=== PATIENT | female | born 1990 | race African-American/Black ===

== ENCOUNTER 2023-09-25 18:26 | Emergency (ER) | payer OTHER ==
[~2023-09-25] VITALS: Ht 165.1 cm; Wt 97.9 kg
[2023-09-25 18:47] VITALS: BP 105/74; PULSE 81; RESP 18; TEMP 98.1; O2SAT 99
[2023-09-25] MEDS ORDERED: IBUP-1455 PO (19:31)
[2023-09-25] MEDS ORDERED: AMOX875T4 PO (19:31)
== END 2023-09-25 19:41 | disposition home or self-care (01) ==
LOC: ER 18:26
DX: K04.7 Periapical abscess without sinus (principal)

== ENCOUNTER 2024-03-18 14:07 | Inpatient (IN) | payer OTHER ==
[~2024-03-18] VITALS: Ht 162.6 cm; Wt 89.0 kg
[~2024-03-18 14:07] MED LIST: AMOX875T4 PO; IBUP-1455 PO
--- NOTE | 2024-03-18 14:26 | ED.PDOC ---
HPI Comments HPI: Poor Historian. 33 y.o female presents to the ED for a chief complaint of chest pain that started on 03/09/24 and is associated with right arm tingling sensation x today. Patient reports chest pain is intermittent, has no alleviating or precipitating factors. Patient called her PCP today and was referred to the ED for further evaluation. Patient denies any chest pain at this moment. Denies fever, chills, nausea, vomiting, diarrhea, SOB, urinary symptoms or family history of CAD. Patient reports the use of marijuana. Vital signs: BP: 119/63 HR: 73 Temp: 97.7 F SPO2: 98% RA RR: 20 Patient denies any allergies Past medical history: Denies Past surgical history: Denies REVIEW OF SYSTEMS: CONSTITUTIONAL: Denies acute: fever, diaphoresis, chills, generalized weakness. HEAD: Denies acute: headache, photophobia Eyes: Denies acute: Double vision, vision loss, eye pain, eye discharge. EARS: Denies acute: tinnitus, hearing loss, ear discharge, ear pain, THROAT: Denies acute: sore throat, swelling, difficulty swallowing , pain with swallowing, change in voice. NECK: Denies acute: neck pain, neck swelling, stiff neck. HEART: Denies acute : palpitations, LUNGS: Denies acute: SOB, wheezing, cough, hemoptysis ABDOMEN: Denies acute: abdominal pain, Nausea, Vomiting, diarrhea, melena , hematemesis, hematochezia SKIN: Denies acute: rash, redness, lesions, itchiness. EXTREMITIES: Denies acute: calf pain, weakness, Denies acute: Low back pain. Neuro: Denies acute: focal neurological deficit, motor or sensory focal neurological deficit, tremors, seizure like activity, confusion, dizziness, change in mental status, loss of bowel or bladder function, cauda equina like symptoms. : Denies acute: dysuria, hematuria, flank pain, increase in urinary frequency. PSYCH: Denies acute: hallucination, suicidal ideation, homicidal ideation. FEMALE: Denies acute: abnormal vaginal bleeding, foul odor, unusual discharge. PHYSICAL EXAM: General: no acute distress, awake and alert. Head: normocephalic, atraumatic. Neck: supple, trachea is midline, no swelling. Throat: Normal phonation. Eyes:, no erythema, no purulent discharge, no proptosis, no icterus. Heart: regular rate, regular rhythm, no significant murmur appreciated. Lungs: no apparent respiratory distress, Able to speak in full sentences. No wheezing, no rhonchi, no crackles. No stridors Clear to auscultation bilaterally. Abdomen: non tender to palpation, non distended, soft, no guarding, no rebound, + bowel sounds. Neuro: Awake, Alert, oriented to name, self, situation, follows commands GCS=15. Speech is normal. Skin: no petechia, no purpura, no cyanosis, non-pale, not jaundice. Lower extremities: --no - Pitting edema no deformity, no focal swelling, no calf TTP. Makes eye contact. moves all four extremities. Face: no apparent facial droop. Ambulating in the ED independently. Chief Complaint: Chest Pain Time Seen by MD: 14:16 Reviewed Notes: Nurses Notes, Medications, Allergies Allergies: Coded Allergies: NO KNOWN ALLERGIES (Unverified , 09/25/23) Home Meds Active Scripts Ibuprofen Micronized (Ibuprofen) 800 Mg Tab, 800 MG PO TID for 20 Days, #60 TAB Prov:AGUS RIZZO 09/25/23 Amoxicillin & Pot Clavulanate (Amoxicillin/Potassium Cla) 875 Mg Tab, 1 TAB PO BID for 10 Days, #20 TAB Prov:AGUS RIZZO 09/25/23 Reported Medications Bupropion Hcl (Bupropion Hcl Xl) 300 Mg Tab, 1 TAB PO DAILY 03/18/24 Information Source: Patient Mode of Arrival: Ambulatory Past Medical History PAST MEDICAL HISTORY: Denies Surgical History: Denies all surgeries HEEL SEAT POUNDER History: No Pertinent HEEL SEAT POUNDER History Family History Family History: Reviewed,noncontributory to illness Social History Smoker: Non-Smoker Alcohol: Denies ETOH Use Drugs: Marijuana Lives In: Home Was a procedure done? Was a procedure done?: No CP Differential Dx Differential Diagnosis: N/A Differential Diagnosis: Angina, Chest Wall Pain, Costochondritis, Pericarditis, Other (Ddx include but not limitied to gastritis, musculoskeletal pain, radiculopathy, atypical chest pain, dissection, aneurysm, ACS, unstable angina, hiatal hernia, GERD, anxiety, costochondritis, PE, pneumothroax, neoplasm, cardiac ischemia, drug abuse, anemia.) X-Ray, Labs, Meds, VS Vital Signs Date Time Temp Pulse Resp B/P (MAP) Pulse Ox O2 Delivery O2 Flow Rate FiO2 03/18/24 17:13 66 03/18/24 15:56 117/81 03/18/24 15:20 117/81 (93) 03/18/24 15:14 69 03/18/24 14:56 141/66 03/18/24 14:51 64 18 141/66 (91) 98 03/18/24 14:13 67 03/18/24 14:10 97.7 73 20 119/63 (81) 98 Lab Test 03/18/24 17:35 03/18/24 15:17 03/18/24 15:15 03/18/24 14:17 Range/Units Troponin I High Sensitivity < 3 L < 3 L < 3 L </=34 ng/L Urine Color Yellow Yellow Urine Clarity Turbid H Clear Urine pH 6.0 5.0-9.0 Urine Specific [place] 1.037 H 1.001-1.035 Urine Protein 1+ H Negative Urine Ketones Trace Negative Urine Blood Negative Negative /uL Urine Nitrite Negative Negative Urine Bilirubin Negative Negative Urine Urobilinogen 3 H Negative mg/dL Urine Leukocyte Esterase Negative Negative /uL Urine RBC 1 0 - 4 /hpf Urine WBC 2 0 - 5 /hpf Urine Squamous Epithelial Cells Mod <5 /hpf Urine Bacteria None seen None Seen /hpf Urine Mucus Moderate None Seen Urine Glucose Normal Normal mg/dL White Blood Count 5.9 4.4-10.8 10^3/uL Red Blood Count 4.33 4.0-5.20 10^6/uL Hemoglobin 14.6 12.2-16.2 g/dL Hematocrit 41.8 36.0-46.0 % Mean Corpuscular Volume 96.6 80.0-100.0 fL Mean Corpuscular Hemoglobin 33.7 H 28.0-32.0 pg Mean Corpuscular Hemoglobin Concent 34.9 32.0-36.0 g/dL Red Cell Distribution Width 13.1 11.8-14.3 % Platelet Count 287 140-450 10^3/uL Mean Platelet Volume 7.5 6.9-10.8 fL Neutrophils (%) (Auto) 48.7 37.0-80.0 % Lymphocytes (%) (Auto) 40.9 10.0-50.0 % Monocytes (%) (Auto) 6.8 0.0-12.0 % Eosinophils (%) (Auto) 3.0 0.0-7.0 % Basophils (%) (Auto) 0.6 0.0-2.0 % Neutrophils # (Auto) 2.9 1.6-8.6 10 ^3/uL Lymphocytes # (Auto) 2.4 0.4-5.4 10 ^3/uL Monocytes # (Auto) 0.4 0-1.3 10 ^3/uL Eosinophils # (Auto) 0.2 0-0.8 10 ^3/uL Basophils # (Auto) 0 0-0.2 10 ^3/uL Nucleated Red Blood Cells 0.2 % D-Dimer, Quantitative 0.27 0.0-0.49 mg/L FEU Sodium Level 142 136-145 mmol/L Potassium Level 3.9 3.5-5.1 mmol/L Chloride Level 110 H 98-107 mmol/L Carbon Dioxide Level 27 20-31 mmol/L Anion Gap 5 5-15 Blood Urea Nitrogen 11 9-23 mg/dL Creatinine 0.96 0.550-1.02 mg/dL Glomerular Filtration Rate Calc 81 >90 mL/min BUN/Creatinine Ratio 11.5 10.0-20.0 Serum Glucose 84 74-106 mg/dL Lactic Acid Level 1.2 0.4-2.0 mmol/L Calcium Level 10.1 8.7-10.4 mg/dL Magnesium Level 2.0 1.6-2.6 mg/dL Total Bilirubin 0.6 0.2-1.0 mg/dL Aspartate Amino Transferase (AST) 11 L 13-40 U/L Alanine Aminotransferase (ALT) 16 7-40 U/L Alkaline Phosphatase 99 46-116 U/L Total Protein 7.6 5.7-8.2 g/dL Albumin 4.3 3.2-4.8 g/dL Current Medications Medications (Trade) Dose Ordered Sig/Tyrone Route Start Time Stop Time Status Last Admin Aspirin 325 mg ONCE ONCE PO 03/18/24 14:45 03/18/24 14:46 DC 03/18/24 14:55 Nitroglycerin (Ntrostat Sublingual) 0.4 mg ONCE ONCE SL 03/18/24 14:45 03/18/24 14:46 DC 03/18/24 14:56 [facility] [id number] [facility] [address] Ph: [phone] DIAGNOSTIC IMAGING Diagnostic Imaging Report : [id number] Signed PATIENT: TRICE DOS SANTOS ACCT: [id number] UNIT: [id number] : 1990 LOC: ER ROOM / BED: / AGE / SEX: 33 / F ADM STATUS: REG ER SERVICE [id number] ORDERING PHYSICIAN: SAQIB RAY DO PROCEDURE(s): CXRP - CHEST PORTABLE REASON: cp ORDER NUMBER(s): [id number], ACCESSION NUMBER(s): [id number] CHEST RADIOGRAPH Indication:cp Technique: Single frontal view of the chest was obtained COMPARISON: None FINDINGS: Lines and Tubes: None Lungs: Clear Pleura: No effusion. No pneumothorax. Cardiomediastinal contours: Unremarkable Bones: Unremarkable IMPRESSION: No acute disease. ATED BY: RUDDY VILLA MD DICTATED DATE/TIME: 03/18/241501 SIGNED BY: RUDDY VILLA MD SIGNED DATE/TIME: 03/18/241501 CC: Time of 1ST Reevaluation: 14:22 Reevaluation 1ST: Unchanged Time of 2ND Reevaluation: 19:47 Reevaluation 2ND: Improved Patient Education/Counseling: Diagnosis, Treatment Family Education/Counseling: No Family Present Comments Patient presented with the above HPI.---chest pain---workup was initiated. patient was found with the above mentioned diagnosis. Patient was given: Aspirin and nitroglycerin Patient ED course and VS have been stabilized. Patient has been reassessed in the ED and remained in a stable condition. Pertinent incidental findings were discussed with the patient and/or family. Patient/family voices understanding and is agreeable with plan. Patient has been observed in the ED adequate length of time to insure improvement/stability. EKG reveals multiple T-wave inversions in inferior leads patient was admitted to the medicine team for further evaluation and treatment of their presentation. All the reports of any imaging studies that were ordered by myself were reviewed by myself. Departure 1 Departure Time of Disposition: 14:38 Impression: Primary Impression: Abnormal EKG Additional Impressions: Chest pain T wave inversion in EKG Disposition: 09 ADMITTED INPATIENT Admit to: Tele Condition: Guarded Discharged With: Self Critical Care Note Critical Care Time?: No Heart Score Heart Score: Heart Score Response (Comments) Value History Moderate Suspicious [address]-Deviation 2 Age <45 0 Risk Factors No known risk factors 0 Troponin Normal limit 0 Total 3 I personally scribed for SAQIB RAY DO ([email or web address]) on 03/18/24 at 14:26. Electronically submitted by Gabrielle Martines ([facility]). I personally scribed for SAQIB RAY DO ([email or web address]) on 03/18/24 at 14:36. Electronically submitted by Gabrielle Martines ([facility]). I personally scribed for SAQIB RAY DO ([email or web address]) on 03/18/24 at 16:50. Electronically submitted by Gabrielle Martines ([facility] SAQIB RAY DO Mar 18, 2024 14:26
[2024-03-18] MEDS: ASPirin 325 MG TAB PO ONE (14:55)
[2024-03-18] MEDS: NITROGLYCERIN 0.4 MG SL TAB SL ONE (14:56)
--- NOTE | 2024-03-18 15:07 | DVH ---
CHEST RADIOGRAPH Indication:cp Technique: Single frontal view of the chest was obtained COMPARISON: None FINDINGS: Lines and Tubes: None Lungs: Clear Pleura: No effusion. No pneumothorax. Cardiomediastinal contours: Unremarkable Bones: Unremarkable IMPRESSION: No acute disease.
[2024-03-18 15:17] LABS: Urine Bacteria None Seen /hpf (None Seen)
[2024-03-18 15:36] LABS: Urine Blood Negative /uL (Negative); Urine Clarity Turbid (Clear); Urine Color Yellow (Yellow); Urine Mucus MODERATE (None Seen); Urine Protein, UAD 1+ (Negative); Urine Specific Gravity 1.037 (1.001-1.035); Urine Urobilinogen 3 mg/dL (Negative); Urine WBC 2 /hpf (0 - 5)
[2024-03-18 17:13] LABS: Basophils # (auto) 0 10 ^3/uL (0-0.2); Basophils % (auto) 0.6 % (0.0-2.0); Eosinophils # (auto) 0.2 10 ^3/uL (0-0.8); Hematocrit 41.8 % (36.0-46.0); Hemoglobin 14.6 g/dL (12.2-16.2); Lymphocytes # (auto) 2.4 10 ^3/uL (0.4-5.4); Lymphocytes % (auto) 40.9 % (10.0-50.0); Mean Corpuscular Hemoglobin 33.7 pg (28.0-32.0); Mean Corpuscular Hgb Conc. 34.9 g/dL (32.0-36.0); Mean Corpuscular Volume 96.6 fL (80.0-100.0); Monocytes # (auto) 0.4 10 ^3/uL (0-1.3); Monocytes % (auto) 6.8 % (0.0-12.0); Neutrophils # (auto) 2.9 10 ^3/uL (1.6-8.6); Neutrophils % (auto) 48.7 % (37.0-80.0); Nucleated Red Blood Cells % 0.2 %; Platelet Count (auto) 287 10^3/uL (140-450); Red Blood Cells 4.33 10^6/uL (4.0-5.20); Red Cell Distribution Width 13.1 % (11.8-14.3); White Blood Cell 5.9 10^3/uL (4.4-10.8)
[2024-03-18 17:19] LABS: Alanine Aminotransferase 16 U/L (7-40); Albumin 4.3 g/dL (3.2-4.8); Alkaline Phosphatase 99 U/L (46-116); Anion Gap 5 (5-15); Aspartate Aminotransferase 11 U/L (13-40); BUN/Creatinine Ratio 11.5 (10.0-20.0); Bilirubin, Total 0.6 mg/dL (0.2-1.0); Blood Urea Nitrogen 11 mg/dL (9-23); Calcium 10.1 mg/dL (8.7-10.4); Carbon Dioxide 27 mmol/L (20-31); Chloride 110 mmol/L (98-107); Glucose 84 mg/dL (74-106); Potassium 3.9 mmol/L (3.5-5.1); Sodium 142 mmol/L (136-145)
[2024-03-18 17:20] LABS: Total Protein 7.6 g/dL (5.7-8.2)
--- NOTE | 2024-03-18 18:02 | ECG ---
[facility] Test Date: 2024-03-18 Test Time: 17:13:58 Pat Name: TRICE DOS SANTOS Department: ED Room: Gender: F Cloud Solutions Architect: CATARINO : 1990 Requested By: SAQIB RAY Order Number: [id number] Reading MD: Measurements Intervals [place] Rate: 66 P: 61 RI: 134 QRS: 28 QRSD: 97 T: -30 QT: 365 QTc: 383 Interpretive Statements Sinus rhythm Nonspecific T abnormalities, diffuse leads Please click the below link to view image of tracing.
[2024-03-18] MEDS ORDERED: BUPR-581 PO (18:59)
--- NOTE | 2024-03-18 19:08 | DVHHP2 ---
Admitting Diagnosis: Chest pain History of Present Illness 33 y/o female patient presents with c/o chest pain and right arm tingling for the past 1 week. Patient states chest pain is intermittent. Patient called her PCP who referred her to the ER. While in the emergency department the patient was evaluated by the provider, As per provider: Labs, vital signs, and imagining monitored. Patient will be admitted for further evaluation and treatment. I discussed admission with the patient/family and is in agreement to treatment plan. Allergies: Coded Allergies: NO KNOWN ALLERGIES (Unverified , 09/25/23) Home Meds Active Scripts Ibuprofen Micronized (Ibuprofen) 800 Mg Tab, 800 MG PO TID for 20 Days, #60 TAB Prov:AGUS RIZZO 09/25/23 Amoxicillin & Pot Clavulanate (Amoxicillin/Potassium Cla) 875 Mg Tab, 1 TAB PO BID for 10 Days, #20 TAB Prov:AGUS RIZZO 09/25/23 Reported Medications Bupropion Hcl (Bupropion Hcl Xl) 300 Mg Tab, 1 TAB PO DAILY 03/18/24 Current Medications Current Medications Medications (Trade) Dose Ordered Sig/Tyrone Route PRN Reason Start Time Stop Time Status Last Admin Acetaminophen/ Hydrocodone Bitart ([place] 5/325MG Tab) 1 tab Q4HP PRN PO MODERATE PAIN (4-6 PAIN SCALE) 03/18/24 19:15 Temazepam (Restoril) 15 mg QHSP PRN PO FOR INSOMNIA 03/18/24 19:15 Ondansetron HCl (Zofran) 4 mg Q4HP PRN IV NAUSEA / VOMITING 03/18/24 19:15 Enoxaparin Sodium (Lovenox) 40 mg DAILY SC 03/19/24 10:00 03/19/24 08:46 Acetaminophen (Tylenol Tablet) 650 mg Q6HP PRN PO PAIN SCALE 1-3 OR TEMP>100.4 03/18/24 19:15 Morphine Sulfate 2 mg Q4HPRN PRN IV SEVERE PAIN (7-10 PAIN SCALE) 03/18/24 19:15 Pantoprazole Sodium (Protonix Tablet) 40 mg DAILY PO 03/19/24 10:00 03/19/24 08:46 Nitroglycerin (Ntrostat Sublingual) 0.4 mg Q5MINP PRN SL FOR CHEST PAIN 03/18/24 19:15 Morphine Sulfate 2 mg Q30M PRN IV FOR CHEST PAIN 03/18/24 19:15 Lisinopril (Zestril Tablet) 10 mg DAILY PO 03/19/24 10:00 03/19/24 08:46 Review of Systems Constitutional: denies chills, denies fever, denies malaise Eyes: denies eye pain, denies vision change ENT: denies ear pain, denies headache, denies nasal congestion, denies painful swallowing, denies voice change Cardiovascular: denies chest pain, denies edema, denies orthopnea, denies palpitations, denies paroxysmal nocturnal dyspnea Respiratory: denies cough, denies shortness of breath Gastrointestinal: denies constipation, denies diarrhea, denies nausea, denies vomiting Genitourinary: denies dysuria, denies frequent urination, denies urethral discharge Musculoskeletal: denies back pain, denies joint pain, denies muscle pain Skin: denies bruising, denies itching, denies rash Neurological: denies focal weakness, denies headache, denies sensory changes Psychiatric: denies anxiety, denies depression Endocrine: denies polydipsia, denies polyuria Hematologic/Lymphatic: denies easy bleeding, denies easy bruising, denies enlarged lymph nodes Allergic/Immunologic: denies allergy, denies hives Vital Signs Vital Signs Date Time Temp Pulse Resp B/P (MAP) Pulse Ox O2 Delivery O2 Flow Rate FiO2 03/19/24 08:56 98.1 62 16 114/73 (87) 100 98.1 03/18/24 22:59 Room Air* 0 21 Physical Exam General Appearance: alert, no distress HEENT: EOMI, PERRLA, normal external inspect of ears, no icterus, no nasal drainage Neck: no carotid bruit, no jugular venous distention (JVD), no lymphadenopathy Chest: normal thorax Respiratory: clear to auscultation, normal air movement Cardiovascular: regular rate and rhythm, no diastolic murmur, no jugular venous distention (JVD), no rub, no systolic murmur Abdominal: soft, no hepatomegaly, no mass, no splenomegaly, no tenderness Genitourinary: grossly normal external Musculoskeletal: no joint tenderness, no swelling Extremities: normal pulses, no calf tenderness, no clubbing, no cyanosis, no edema Skin: no bruising, no jaundice, no rash Neurological: alert, No focal deficit Results Labs Test 03/19/24 06:21 03/18/24 17:35 03/18/24 15:15 03/18/24 14:17 Range/Units White Blood Count 5.2 4.4-10.8 10^3/uL Red Blood Count 4.08 4.0-5.20 10^6/uL Hemoglobin 13.6 12.2-16.2 g/dL Hematocrit 39.6 36.0-46.0 % Mean Corpuscular Volume 97.0 80.0-100.0 fL Mean Corpuscular Hemoglobin 33.2 H 28.0-32.0 pg Mean Corpuscular Hemoglobin Concent 34.3 32.0-36.0 g/dL Red Cell Distribution Width 13.2 11.8-14.3 % Platelet Count 224 140-450 10^3/uL Mean Platelet Volume 7.0 6.9-10.8 fL Neutrophils (%) (Auto) 48.0 37.0-80.0 % Lymphocytes (%) (Auto) 37.4 10.0-50.0 % Monocytes (%) (Auto) 10.0 0.0-12.0 % Eosinophils (%) (Auto) 4.2 0.0-7.0 % Basophils (%) (Auto) 0.4 0.0-2.0 % Neutrophils # (Auto) 2.5 1.6-8.6 10 ^3/uL Lymphocytes # (Auto) 2.0 0.4-5.4 10 ^3/uL Monocytes # (Auto) 0.5 0-1.3 10 ^3/uL Eosinophils # (Auto) 0.2 0-0.8 10 ^3/uL Basophils # (Auto) 0 0-0.2 10 ^3/uL Nucleated Red Blood Cells 0.2 % Sodium Level 140 136-145 mmol/L Potassium Level 3.7 3.5-5.1 mmol/L Chloride Level 110 H 98-107 mmol/L Carbon Dioxide Level 27 20-31 mmol/L Anion Gap 3 L 5-15 Blood Urea Nitrogen 9 9-23 mg/dL Creatinine 0.83 0.550-1.02 mg/dL Glomerular Filtration Rate Calc 96 >90 mL/min BUN/Creatinine Ratio 10.8 10.0-20.0 Serum Glucose 85 74-106 mg/dL Calcium Level 9.0 8.7-10.4 mg/dL Total Bilirubin 0.7 0.2-1.0 mg/dL Aspartate Amino Transferase (AST) 9 L 13-40 U/L Alanine Aminotransferase (ALT) 12 7-40 U/L Alkaline Phosphatase 86 46-116 U/L Total Protein 6.5 5.7-8.2 g/dL Albumin 3.8 3.2-4.8 g/dL Troponin I High Sensitivity < 3 L </=34 ng/L Urine Color Yellow Yellow Urine Clarity Turbid H Clear Urine pH 6.0 5.0-9.0 Urine Specific [place] 1.037 H 1.001-1.035 Urine Protein 1+ H Negative Urine Ketones Trace Negative Urine Blood Negative Negative /uL Urine Nitrite Negative Negative Urine Bilirubin Negative Negative Urine Urobilinogen 3 H Negative mg/dL Urine Leukocyte Esterase Negative Negative /uL Urine RBC 1 0 - 4 /hpf Urine WBC 2 0 - 5 /hpf Urine Squamous Epithelial Cells Mod <5 /hpf Urine Bacteria None seen None Seen /hpf Urine Mucus Moderate None Seen Urine Glucose Normal Normal mg/dL D-Dimer, Quantitative 0.27 0.0-0.49 mg/L FEU Lactic Acid Level 1.2 0.4-2.0 mmol/L Magnesium Level 2.0 1.6-2.6 mg/dL Plan 1. Chest pain Monitor, cardiology consult, monitor EKG, trend troponin, echocardiogram 2. Benign essential HTN Monitor, antihypertensives 3. Obesity Monitor Plan discussed with: Patient, Other RAMOS RICHARDSON NP Mar 18, 2024 19:08
[2024-03-18] MEDS ORDERED: TEMAZEPAM 15 MG CAP PO PRN (19:15)
[2024-03-18] MEDS ORDERED: ACETAMINOPHEN 325 MG TAB PO PRN (19:15)
[2024-03-18] MEDS ORDERED: MORPHINE SULFATE INJ 2 MG/ml SYRG IV PRN ×2 (19:15)
[2024-03-18] MEDS ORDERED: HYDROcodone-ACET 5/325MG TAB PO PRN (19:15)
[2024-03-18] MEDS ORDERED: ONDANSETRON HCL 4 MG/2 ML VIAL IV PRN (19:15)
[2024-03-18] MEDS ORDERED: NITROGLYCERIN 0.4 MG SL TAB SL PRN (19:15)
--- NOTE | 2024-03-18 19:21 | ECG ---
[facility] Test Date: 2024-03-18 Test Time: 15:14:17 Pat Name: TRICE DOS SANTOS Department: ED Room: Gender: F Registered Nursing Professor: CATARINO : 1990 Requested By: SAQIB RAY Order Number: [id number] Reading MD: Measurements Intervals [place] Rate: 69 P: 74 ND: 146 QRS: -12 QRSD: 92 T: -85 QT: 342 QTc: 367 Interpretive Statements Sinus rhythm Nonspecific T abnormalities, diffuse leads Please click the below link to view image of tracing.
[2024-03-18 20:30] VITALS: RESP 16
[2024-03-18 22:59] VITALS: PULSE 65
[2024-03-19 01:00] VITALS: BP 102/69; PULSE 67; RESP 17; TEMP 97.3; O2SAT 100
[2024-03-19 05:00] VITALS: BP 100/63; PULSE 74; RESP 19; TEMP 98.4; O2SAT 99
[2024-03-19 07:07] LABS: Alanine Aminotransferase 12 U/L (7-40); Albumin 3.8 g/dL (3.2-4.8); Alkaline Phosphatase 86 U/L (46-116); Anion Gap 3 (5-15); Aspartate Aminotransferase 9 U/L (13-40); BUN/Creatinine Ratio 10.8 (10.0-20.0); Basophils # (auto) 0 10 ^3/uL (0-0.2); Basophils % (auto) 0.4 % (0.0-2.0); Blood Urea Nitrogen 9 mg/dL (9-23); Carbon Dioxide 27 mmol/L (20-31); Chloride 110 mmol/L (98-107); Eosinophils # (auto) 0.2 10 ^3/uL (0-0.8); Eosinophils % (auto) 4.2 % (0.0-7.0); Glucose 85 mg/dL (74-106); Hematocrit 39.6 % (36.0-46.0); Hemoglobin 13.6 g/dL (12.2-16.2); Lymphocytes % (auto) 37.4 % (10.0-50.0); Mean Corpuscular Hemoglobin 33.2 pg (28.0-32.0); Mean Corpuscular Hgb Conc. 34.3 g/dL (32.0-36.0); Monocytes # (auto) 0.5 10 ^3/uL (0-1.3); Neutrophils # (auto) 2.5 10 ^3/uL (1.6-8.6); Nucleated Red Blood Cells % 0.2 %; Platelet Count (auto) 224 10^3/uL (140-450); Potassium 3.7 mmol/L (3.5-5.1); Red Blood Cells 4.08 10^6/uL (4.0-5.20); Red Cell Distribution Width 13.2 % (11.8-14.3); Sodium 140 mmol/L (136-145); White Blood Cell 5.2 10^3/uL (4.4-10.8)
[2024-03-19 07:08] LABS: Bilirubin, Total 0.7 mg/dL (0.2-1.0)
[2024-03-19 07:09] LABS: Total Protein 6.5 g/dL (5.7-8.2)
--- NOTE | 2024-03-19 07:16 | DVHINCON2 ---
Date of service: Mar 19, 2024 History of Present Illness HPI Patient is a 33-year-old female who presented with 1 week of recurring chest discomfort. Pain has been in the right-sided upper chest. It has been atypical. It does worsened with touch. Denies shortness of breath. She did have some right-sided weakness also for 1 day. While being managed in emergency room she was found to have nonspecific T-wave changes and cardiology was involved for cardiac aspects of care. Patient denies exertional shortness of breath. Patient denies exertional chest pain. Patient denies palpitations. Patient denies leg swellings. Patient denies orthopnea/PND. Patient denies previous cardiac problem. Patient denies previous cardiac evaluation. She does smoke marijuana. She mentions recent diagnosis of right breast problem (lymphoma?) for which she is supposed to have further evaluation as outpatient by primary care physician. She also mentions that she felt somehow confused for around 1 day. She also has had some abdominal pains in the past few days. Home Meds Active Scripts Ibuprofen Micronized (Ibuprofen) 800 Mg Tab, 800 MG PO TID for 20 Days, #60 TAB Prov:AGUS RIZZO [facility] 09/25/23 Amoxicillin & Pot Clavulanate (Amoxicillin/Potassium Cla) 875 Mg Tab, 1 TAB PO BID for 10 Days, #20 TAB Prov:AGUS RIZZO [facility] 09/25/23 Reported Medications Bupropion Hcl (Bupropion Hcl Xl) 300 Mg Tab, 1 TAB PO DAILY 03/18/24 Past Medical History Others Past medical history includes recent diagnosis of right breast problem (details? ). Patient mentions lymphoma? Patient mentions that aunt had lymphoma. Her grandmother had CVA at her old age. She does smoke marijuana. She denies other drug abuse. She denies alcohol abuse. Patient Family History: Cardiovascular disease G8 FATHER, Age: 53 Smoker: Positive Alocohol: None Drugs: Marijuana Lives with: With family Review of Systems Constitutional: No symptom reported Ears, Nose, & Throat: No symptom reported Eyes: No symptom reported Cardiovascular: Chest Pain (right sided and plueretic) Gastrointestinal: Abdominal Pain All Other Systems 14 point review of system was performed. Relevant findings as per above and as per HPI. Otherwise negative H&P Exam Vital Signs Vital Signs Date Time Temp Pulse Resp B/P (MAP) Pulse Ox O2 Delivery O2 Flow Rate FiO2 03/18/24 22:59 65 Room Air* 0 21 03/18/24 20:31 18 116/77 (90) 97 03/18/24 14:10 97.7 General Appeara: Well developed, Well nourished Head Exam: Normal inspection Neck Exam: Normal inspection Eye Exam: bilateral eye PERRL Mouth: Normal Inspection Pulmonary/Respiratory: Normal inspection, Lungs clear Cardiovascular/Chest: Regular rate Peripheral Pulses: 2+ carotid (R), 2+ carotid (L), 2+ femoral (R), 2+ femoral (L), 2+ dorsalis pedis (R), 2+ dorsalis pedis (L), 2+ Radial (R), 2+ Radial (L) Abdominal Exam: Normal bowel sounds, Soft, No hepatospenomegaly Neuro/Mental St: Alert, Oriented Appearance: Appropriate appearance Eye contact/ Speech: Cooperative Labs/Xrays Labs Test 03/19/24 06:21 03/18/24 17:35 03/18/24 15:15 03/18/24 14:17 Range/Units Troponin I High Sensitivity < 3 L </=34 ng/L Urine Color Yellow Yellow Urine Clarity Turbid H Clear Urine pH 6.0 5.0-9.0 Urine Specific [place] 1.037 H 1.001-1.035 Urine Protein 1+ H Negative Urine Ketones Trace Negative Urine Blood Negative Negative /uL Urine Nitrite Negative Negative Urine Bilirubin Negative Negative Urine Urobilinogen 3 H Negative mg/dL Urine Leukocyte Esterase Negative Negative /uL Urine RBC 1 0 - 4 /hpf Urine WBC 2 0 - 5 /hpf Urine Squamous Epithelial Cells Mod <5 /hpf Urine Bacteria None seen None Seen /hpf Urine Mucus Moderate None Seen Urine Glucose Normal Normal mg/dL Eosinophils (%) (Auto) 3.0 0.0-7.0 % Eosinophils # (Auto) 0.2 0-0.8 10 ^3/uL Basophils # (Auto) 0 0-0.2 10 ^3/uL Nucleated Red Blood Cells 0.2 % D-Dimer, Quantitative 0.27 0.0-0.49 mg/L FEU Lactic Acid Level 1.2 0.4-2.0 mmol/L Magnesium Level 2.0 1.6-2.6 mg/dL Assessment/Plan Plan Patient is a 33-year-old female who presented with 1 week of recurring chest discomfort. Pain has been in the right-sided upper chest. It has been atypical. It does worsened with touch. Denies shortness of breath. She did have some right-sided weakness also for 1 day. While being managed in emergency room she was found to have nonspecific T-wave changes and cardiology was i nvolved for cardiac aspects of care. Patient denies exertional shortness of breath. Patient denies exertional chest pain. Patient denies palpitations. Patient denies leg swellings. Patient denies orthopnea/PND. Patient denies previous cardiac problem. Patient denies previous cardiac evaluation. She does smoke marijuana. She mentions recent diagnosis of right breast problem (lymphoma?) for which she is supposed to have further evaluation as outpatient by primary care physician. She also mentions that she felt somehow confused for around 1 day. She also has had some abdominal pains in the past few days. Not in acute distress. Overweight lady. Lying flat in bed. No JVD. Mucosa is pink and wet. No carotid bruit. Not using accessory muscles of breathing. Lungs are clear to auscultation. Cardiac: Regular, no thrill/gallop/murmur. Abdomen is soft. There is no gross mass/hepatomegaly. Bowel sound is positive. No tenderness. Extremities do not reveal edema/. Dorsalis pedis is 2+ bilateral Past medical history includes recent diagnosis of right breast problem (details? ). Patient mentions lymphoma? Patient mentions that aunt had lymphoma. Her grandmother had CVA at her old age. She does smoke marijuana. She denies other drug abuse. She denies alcohol abuse. D-dimer: 0.27 (within normal limits) Creatinine: 0.96 Potassium: 3.9 Troponin (high sensitive): <3 - <3 - <3 Chest x-ray revealed: EKG revealed sinus rhythm with nonspecific T-wave changes Tele reveals sinus rhythm Patient is a 33-year-old female who presented with one-week of recurring atypical chest discomfort. High sensitive troponin (serial) has been negative. Acute coronary syndrome is not considered. Echocardiogram can be justified. Atypical chest discomfort ACS not considered History of breast problem Chest tenderness Pleuritic right-sided chest discomfort Cardiac suggestion for management: Manage in telemetry Follow-up electrolytes and kidney function tests and correct abnormalities. Keep potassium above 4 and magnesium above 2 Request for echocardiogram Cardiac-anderson, after echocardiogram (if nonrevealing) can be followed as outp atient Lifestyle and risk factor modifications. Patient was counseled to avoid marijuana/drugs Evaluation and management of breast problem as per primary team Evaluation and management of reported confusion/abdominal pain as per primary team Thank you for consultation A total of 75 minutes was spent reviewing the patient record, examining the patient, making a diagnostic and therapeutic plan, discussing this plan with medical personnel, following up on diagnostic studies and following the patient for clinical stability excluding any and all procedures. At least 50% of this time was spent in direct, [id number] contact. Thank you for allowing me to participate in this patient's care. Further recommendations will depend on patient's clinical course. Please do not hesitate to contact me if you have any questions or concerns. This medical document was created using electronic medical record system with [employer] computerized dictation system. Although this document has been carefully reviewed, there may still be some phonetic and typographical errors. These areas are purely typographical due to the imperfection of the software programs, and do not reflect any compromise in the patient's medical care. Plan discussed with: Patient, Other (nurse) OSCAR FELTON MD Mar 19, 2024 07:16
[2024-03-19 08:00] VITALS: PULSE 91
[2024-03-19] MEDS: ENOXAPARIN SOD 40 MG/0.4 ML SYRINGE SC SCH (08:46)
[2024-03-19] MEDS: LISINOPRIL 5 MG TAB PO SCH (08:46)
[2024-03-19] MEDS: PANTOPRAZOLE 40 MG TAB PO SCH (08:46)
[2024-03-19 08:56] VITALS: BP 114/73; PULSE 62; RESP 16; TEMP 98.1; O2SAT 100
--- NOTE | 2024-03-19 12:12 | DVHDS2 ---
Discharge Summary Date of Admission Mar 18, 2024 at 19:04 Date of Discharge: Mar 19, 2024 Admitting Diagnosis Chest pain Labs/Diagnostic Data: Laboratory Results Test 03/19/24 06:21 03/18/24 17:35 03/18/24 15:15 03/18/24 14:17 White Blood Count 5.2 10^3/uL (4.4-10.8) Red Blood Count 4.08 10^6/uL (4.0-5.20) Hemoglobin 13.6 g/dL (12.2-16.2) Hematocrit 39.6 % (36.0-46.0) Mean Corpuscular Volume 97.0 fL (80.0-100.0) Mean Corpuscular Hemoglobin 33.2 pg (28.0-32.0) Mean Corpuscular Hemoglobin Concent 34.3 g/dL (32.0-36.0) Red Cell Distribution Width 13.2 % (11.8-14.3) Platelet Count 224 10^3/uL (140-450) Mean Platelet Volume 7.0 fL (6.9-10.8) Neutrophils (%) (Auto) 48.0 % (37.0-80.0) Lymphocytes (%) (Auto) 37.4 % (10.0-50.0) Monocytes (%) (Auto) 10.0 % (0.0-12.0) Eosinophils (%) (Auto) 4.2 % (0.0-7.0) Basophils (%) (Auto) 0.4 % (0.0-2.0) Neutrophils # (Auto) 2.5 10 ^3/uL (1.6-8.6) Lymphocytes # (Auto) 2.0 10 ^3/uL (0.4-5.4) Monocytes # (Auto) 0.5 10 ^3/uL (0-1.3) Eosinophils # (Auto) 0.2 10 ^3/uL (0-0.8) Basophils # (Auto) 0 10 ^3/uL (0-0.2) Nucleated Red Blood Cells 0.2 % Sodium Level 140 mmol/L (136-145) Potassium Level 3.7 mmol/L (3.5-5.1) Chloride Level 110 mmol/L (98-107) Carbon Dioxide Level 27 mmol/L (20-31) Anion Gap 3 (5-15) Blood Urea Nitrogen 9 mg/dL (9-23) Creatinine 0.83 mg/dL (0.550-1.02) Glomerular Filtration Rate Calc 96 mL/min (>90) BUN/Creatinine Ratio 10.8 (10.0-20.0) Serum Glucose 85 mg/dL (74-106) Calcium Level 9.0 mg/dL (8.7-10.4) Total Bilirubin 0.7 mg/dL (0.2-1.0) Aspartate Amino Transferase (AST) 9 U/L (13-40) Alanine Aminotransferase (ALT) 12 U/L (7-40) Alkaline Phosphatase 86 U/L (46-116) Total Protein 6.5 g/dL (5.7-8.2) Albumin 3.8 g/dL (3.2-4.8) Troponin I High Sensitivity < 3 ng/L (</=34) Urine Color Yellow (Yellow) Urine Clarity Turbid (Clear) Urine pH 6.0 (5.0-9.0) Urine Specific [place] 1.037 (1.001-1.035) Urine Protein 1+ (Negative) Urine Ketones Trace (Negative) Urine Blood Negative /uL (Negative) Urine Nitrite Negative (Negative) Urine Bilirubin Negative (Negative) Urine Urobilinogen 3 mg/dL (Negative) Urine Leukocyte Esterase Negative /uL (Negative) Urine RBC 1 /hpf (0 - 4) Urine WBC 2 /hpf (0 - 5) Urine Squamous Epithelial Cells Mod /hpf (<5) Urine Bacteria None seen /hpf (None Seen) Urine Mucus Moderate (None Seen) Urine Glucose Normal mg/dL (Normal) D-Dimer, Quantitative 0.27 mg/L FEU (0.0-0.49) Lactic Acid Level 1.2 mmol/L (0.4-2.0) Magnesium Level 2.0 mg/dL (1.6-2.6) Other Laboratory Tests 03/19/24 06:21 Brief Hx & Hospital Course: Patient was admitted for chest pain. Troponins were negative patient was seen and cleared by Cardiology. ACS was ruled out. Source of chest pain is unclear. Patient is to follow up with PCP within one week of discharge Condition at Discharge: Fair Final Diagnosis/Problems List 1. Chest pain ACS ruled out 2. Benign essential HTN 3. Obesity Discharge Disposition: Home Discharge Instruct/Medications Diet: Cardiac 2g Na,low cholest Activity: No Restrictions, As Tolerated Follow Up/Referral: pcp WITHIN 1 WEEK Discharge Statement: "Patient was advised to return to the ER or call 911 if any headaches, dizziness, shortness of breath, chest pain, abdominal pain, bleeding, fevers, or worsening of medical condition. Patient was counseled about treatment plan, medications, possible side effects, patientverbalized understanding. All questions were answered to the best of my ability. This discharge took greater then 30 minutes in planning, reviewing documentation, counseling the patient, and discussing with other team members." ASSESSMENT ASSESSMENT Assessment 1. Chest pain ACS ruled out 2. Benign essential HTN 3. Obesity VAHID ARREGUIN HAND TRUCKER Mar 19, 2024 12:12
[2024-03-19] MEDS ORDERED: LISI-275 PO (12:13)
[2024-03-19 13:00] VITALS: BP 113/62; PULSE 74; RESP 17; TEMP 98; O2SAT 97
--- NOTE | 2024-03-20 13:10 | DVHSR ---
APPROVED REPORT EXAM: Two-dimensional and M-mode echocardiogram with Doppler and color Doppler. Blood Pressure: 100/63 mmHg INDICATION Chest Pain RISK FACTORS Height: 64, Weight: 196 DIMENSIONS LVDd4.9 (3.8-5.7cm)LA (2D)3.4 (1.9-4.0cm)Aortic Root3.4 (2.0-3.7cm) LVDs3.4 (2.5-4.0cm)LA (MM) (1.9-4.0cm)Aortic Cusp Exc1.5 (1.5-2.0cm) EF (%) 57.0 (55-70%)Rt. Atrium2.8 (1.9-4.0cm)Asc. Aorta cm IVSd0.9 (0.7-1.1cm)RV (D) (1.8-2.4cm) PWd0.8 (0.7-1.1cm) Mitral Valve MitralMitral Stenosis E wave0.52m/sMV Mean GR.mmHg A wave0.38m/sMV Peak GR.mmHg E/A ratio1.42D MVAcm2 DECEL Pyyd958laPNRGR 1/2 [id number] IVRTmsDop MVA2.91cm2 Aortic Valve Aortic ValveAortic Stenosis V10.81m/Seferino Mean GR.3mmHg V21.06m/Seferino Peak GR.5mmHg LVOT Diameter2.2 (1.8-2.4cm)Doppler AVA2.90cm2 Pulmonic Valve V20.84m/s Tricuspid Valve TR Velocity1.78m/s [id number] Conclusion Left ventricle: Left ventricle is normal-sized with normal systolic function. LVEF was 55-60%. The re was no gross wall motion abnormality. Diastolic function of left ventricle was considered normal. Right ventricle: Right ventricle was normal-sized with normal systolic function. Both atria were nor mal-sized. Aortic valve: Aortic valve was trileaflet. There was no aortic insufficiency/stenosis. There was tr ivial mitral/tricuspid regurgitation. There was trivial pulmonary valve insufficiency. Right ventricular systolic pressure was assessed around 16 mm Hg. There was no pericardial effusion. IVC was normal-sized with normal respiratory variation.
--- NOTE | 2024-03-22 13:06 | ECG ---
[facility] Test Date: 2024-03-18 Test Time: 14:13:13 Pat Name: TRICE DOS SANTOS Department: ER Room: 0297T Gender: F Controller Operations And Hr Manager: DONALD : 1990 Requested By: SAQIB RAY Order Number: [id number] Reading MD: Measurements Intervals [place] Rate: 67 P: 61 MT: 128 QRS: 3 QRSD: 91 T: -70 QT: 339 QTc: 358 Interpretive Statements Sinus rhythm Nonspecific T abnormalities, diffuse leads Baseline wander in lead(s) V2 Please click the below link to view image of tracing.
== END 2024-03-19 13:41 | disposition home or self-care (01) | DRG 203 ==
LOC: ER 14:16 → TELE 19:04 → TELE-WESTW 22:54
PROVIDERS: ADMIT Nurse Practitioner; ATTEND Nurse Practitioner
DX: R07.89 Other chest pain (principal); E66.9 Obesity, unspecified; I10 Essential (primary) hypertension; Z87.891 Personal history of nicotine dependence; Z82.49 Family history of ischemic heart disease and other diseases of the circulatory system; Z82.3 Family history of stroke; Z80.7 Family history of other malignant neoplasms of lymphoid, hematopoietic and related tissues; Z68.33 Body mass index [BMI] 33.0-33.9, adult; Z79.899 Other long term (current) drug therapy
CPT/HCPCS: 36415; 71045; 80053; 81001; 83605; 83735; 84484; 85025; 85379; 93005; 93306; G0378

== ENCOUNTER 2024-03-22 16:15 | Emergency (ER) | payer OTHER ==
[~2024-03-22] VITALS: Ht 175.3 cm; Wt 86.3 kg
[~2024-03-22 16:15] MED LIST changes: +BUPR-581 PO; +LISI-275 PO
--- NOTE | 2024-03-22 16:30 | ED.PDOC ---
History of Present Illness HPI Comments 33 y/o F, with a Hx of angina, anxiety, HTN, and marijuana use and a FMHx of DM, is BIBA for c/o non-radiating, sternal chest pain, nausea, vomiting, and bilateral arms and legs tingling and numbness since 1514, today. Per EMS report, patient endorses on unprovoked and sudden onset of symptoms, this evening, with "pressure-like" pain and vomiting a total of 3x so far. On scene, patient had a blood glucose of 114 and was found tachycardic, with all remaining vitals stable and within normal limits. Patient is commented to also have had a recent [facility] hospital admission from 03/18/24-03/19/24 for chest pain and was Dx with angina and HTN, with losartan medication placement. Patient states on no recent stress, injuries, sick contact, travel, spoiled food intake, substance use/exposure, or sexual activity. Patient endorses no additional relevant or pertinent past medical, surgical, or family Hx. Patient denies having any shortness of breath, palpitations, nausea, vomiting, fever, chills, or other associated symptoms or modifiers at this time. Time Seen by MD: 16:15 Reviewed Notes: Nurses Notes, Rug Layer Notes, Medications, Allergies Allergies: Coded Allergies: NO KNOWN ALLERGIES (Unverified , 09/25/23) Home Meds Active Scripts Lisinopril (Lisinopril) 5 Mg Tab, 10 MG PO DAILY for 30 Days, #60 TAB Prov:VAHID ARREGUIN [facility] 03/19/24 Ibuprofen Micronized (Ibuprofen) 800 Mg Tab, 800 MG PO TID for 20 Days, #60 TAB Prov:AGUS RIZZO [facility] 09/25/23 Amoxicillin & Pot Clavulanate (Amoxicillin/Potassium Cla) 875 Mg Tab, 1 TAB PO BID for 10 Days, #20 TAB Prov:AGUS RIZZO [facility] 09/25/23 Reported Medications Bupropion Hcl (Bupropion Hcl Xl) 300 Mg Tab, 1 TAB PO DAILY 03/18/24 Information Source: Patient, Emergency Med Personnel Mode of Arrival: EMS Severity: Moderate Timing: Hours Duration: Since onset Prehospital treatment: 12 Lead EKG, Accucheck, Manager Fixed Income Past Medical History PAST MEDICAL HISTORY: Anxiety, HTN Past Medical History (Other): angina Surgical History: Denies all surgeries UNHAIRING MACHINE OPERATOR History: No Pertinent UNHAIRING MACHINE OPERATOR History Family History Family History: No family hx of Cancer, No family hx of Heart alem, No family hx of HTN, No family hx ofKidney alem, No family hx of Liver alem, No family hx of Lung alem, No family hx of Stroke, Family hx of DM Social History Smoker: Non-Smoker Alcohol: Denies ETOH Use Drugs: Marijuana Lives In: Home Constitutional: denies: chills, diaphoresis, fatigue, fever, malaise, sweats, weakness, others EENTM: denies: blurred vision, double vision, ear bleeding, ear discharge, ear drainage, ear pain, ear ringing, eye pain, eye redness, hearing loss, mouth pain, mouth swelling, nasal discharge, nose bleeding, nose congestion, nose pain, photophobia, tearing, throat pain, throat swelling, voice changes, others Respiratory: denies: cough, hemoptysis, orthopnea, SOB at rest, shortness of breath, SOB with excertion, stridor, wheezing, others Cardiovascular: reports: chest pain; denies: dizzy spells, diaphoresis, Dyspnea on exertion, edema, irregular heart beat, left arm pain, lightheadedness, palpitations, PND, syncope, others Gastrointestinal: reports: nausea, vomiting Genitourinary: denies: abnormal vagina bleeding, burning, dyspareunia, dysuria, flank pain, frequency, hematuria, incontinence, pain, , vagina discharge, urgency, others Neurological: reports: numbness, tingling; denies: dizziness, fainting, headache, left sided numbness, left sided weakness, paresthesia, pre-existing deficit, right sided numbness, right sided weakness, seizure, speech problems, tremors, weakness, others Musculoskeletal: denies: back pain, gout, joint pain, joint swelling, muscle pain, muscle stiffness, neck pain, others Integumetry: denies: bruises, change in color, change in hair/nails, dryness, laceration, lesions, lumps, rash, wounds, others Allergic/Immunocompromised: denies: Difficulty Healing, Frequent Infections, Hives, Itching, others Hematologic/Lymphatic: denies: anemia, blood clots, easy bleeding, easy bruising, swollen glands, others Endocrine: denies: excessive hunger, excessive sweating, excessive thirst, excessive urination, flushing, intolerance to cold, intolerance to heat, unexplained weight gain, unexplained weight loss, others Psychiatric: denies: anxiety, bipolar disorder, depression, hopeless, panic disorder, schizophrenia, sleepless, suicidal, others All Other Systems: Reviewed and Negative Physical Exam General Appearance: No Apparent Distress HEENT: Normal ENT Inspection, Pharynx Normal, TMs Normal Neck: Full Range of Motion, Non-Tender, Normal, Normal Inspection Respiratory: Chest Non-Tender, Lungs Clear, No Accessory Muscle Use, No Respir atory Distress, Normal Breath Sounds Cardiovascular: No Edema, No JVD, No Murmur, No Gallop, Normal Peripheral Pulses, Regular Rate/Rhythm Breast Exam: Deferred Gastrointestinal: No Organomegaly, Non Tender, No Pulsatile Mass, Normal Bowel Sounds, Soft Genitalia: Deferred Pelvic: Deferred Rectal: Deferred Extremities: No calf tenderness, Normal capillary refill, Normal inspection, Normal range of motion, Non-tender, No pedal edema Musculoskeletal : Apperance: Normal Neurologic: Alert, campaign management specialist II-XII nml as Tested, No Motor Deficits, Normal Affect, Normal Mood, No Sensory Deficits Cerebellar Function: Normal Reflexes: Normal Skin: Dry, Normal Color, Warm Lymphatic: No Adenopathy Was a procedure done? Was a procedure done?: No EKG EKG : Pulse Rate (adult): 90 Hilliards: Normal Block: None ST: Nonsp Differential Dx Considerations may include: CA, ACS, PE, pericarditis, angina, costochondritis, gastritis, gastroenteritis, musculoskeletal pain, viral syndrome, anxiety X-Ray, Labs, Meds, VS Vital Signs Date Time Temp Pulse Resp B/P (MAP) Pulse Ox O2 Delivery O2 Flow Rate FiO2 03/22/24 16:18 98.4 94 16 132/78 (96) 100 Lab Test 03/22/24 16:33 Range/Units White Blood Count 6.6 # 4.4-10.8 10^3/uL Red Blood Count 4.39 4.0-5.20 10^6/uL Hemoglobin 14.6 12.2-16.2 g/dL Hematocrit 42.4 36.0-46.0 % Mean Corpuscular Volume 96.7 80.0-100.0 fL Mean Corpuscular Hemoglobin 33.2 H 28.0-32.0 pg Mean Corpuscular Hemoglobin Concent 34.3 32.0-36.0 g/dL Red Cell Distribution Width 12.9 11.8-14.3 % Platelet Count 272 140-450 10^3/uL Mean Platelet Volume 7.1 6.9-10.8 fL Neutrophils (%) (Auto) 43.1 37.0-80.0 % Lymphocytes (%) (Auto) 46.6 10.0-50.0 % Monocytes (%) (Auto) 8.0 0.0-12.0 % Eosinophils (%) (Auto) 1.9 0.0-7.0 % Basophils (%) (Auto) 0.4 0.0-2.0 % Neutrophils # (Auto) 2.9 1.6-8.6 10 ^3/uL Lymphocytes # (Auto) 3.1 0.4-5.4 10 ^3/uL Monocytes # (Auto) 0.5 0-1.3 10 ^3/uL Eosinophils # (Auto) 0.1 0-0.8 10 ^3/uL Basophils # (Auto) 0 0-0.2 10 ^3/uL Nucleated Red Blood Cells 0.1 % D-Dimer, Quantitative 0.39 0.0-0.49 mg/L FEU Sodium Level 141 136-145 mmol/L Potassium Level 3.7 3.5-5.1 mmol/L Chloride Level 108 H 98-107 mmol/L Carbon Dioxide Level 27 20-31 mmol/L Anion Gap 6 5-15 Blood Urea Nitrogen 11 9-23 mg/dL Creatinine 0.89 0.550-1.02 mg/dL Glomerular Filtration Rate Calc 88 >90 mL/min BUN/Creatinine Ratio 12.4 10.0-20.0 Serum Glucose 94 74-106 mg/dL Calcium Level 9.4 8.7-10.4 mg/dL The patient's CBC and chemistry panel are within normal limits The chest x-ray is negative The patient will follow up with the primary care doctor The patient will return to the emergency department's the condition worsens The D-dimer is negative Images Reviewed?: Images reviewed and evaluated by me Time of 1ST Reevaluation: 16:45 Reevaluation 1ST: Unchanged Patient Education/Counseling: Diagnosis, Treatment, Prognosis, Need For Follow Up Family Education/Counseling: No Family Present Departure 1 Departure Time of Disposition: 17:34 Impression: Primary Impression: Musculoskeletal chest pain Disposition: 01 HOME / SELF CARE / HOMELESS Condition: Fair Discharged With: Self Critical Care Note Critical Care Time?: No Stability Stability form required: No Heart Score Heart Score: Heart Score Response (Comments) Value History Slightly Suspicious 0 EKG Normal 0 Age <45 0 Risk Factors 1 or 2 risk factors 1 Troponin N/A 0 Total 1 I personally scribed for MARIFER CANDELARIO MD ([email or web address]) on 03/22/24 at 16:30. Electronically submitted by Xu Dacosta ([email or web address]). MARIFER CANDELARIO MD Mar 22, 2024 16:30
[2024-03-22 17:02] LABS: Basophils # (auto) 0 10 ^3/uL (0-0.2); Basophils % (auto) 0.4 % (0.0-2.0); Eosinophils # (auto) 0.1 10 ^3/uL (0-0.8); Eosinophils % (auto) 1.9 % (0.0-7.0); Hematocrit 42.4 % (36.0-46.0); Hemoglobin 14.6 g/dL (12.2-16.2); Lymphocytes # (auto) 3.1 10 ^3/uL (0.4-5.4); Lymphocytes % (auto) 46.6 % (10.0-50.0); Mean Corpuscular Hemoglobin 33.2 pg (28.0-32.0); Mean Corpuscular Hgb Conc. 34.3 g/dL (32.0-36.0); Mean Corpuscular Volume 96.7 fL (80.0-100.0); Monocytes # (auto) 0.5 10 ^3/uL (0-1.3); Neutrophils # (auto) 2.9 10 ^3/uL (1.6-8.6); Neutrophils % (auto) 43.1 % (37.0-80.0); Nucleated Red Blood Cells % 0.1 %; Platelet Count (auto) 272 10^3/uL (140-450); Red Blood Cells 4.39 10^6/uL (4.0-5.20); Red Cell Distribution Width 12.9 % (11.8-14.3); White Blood Cell 6.6 10^3/uL (4.4-10.8)
--- NOTE | 2024-03-22 17:10 | DVH ---
Chest x-ray Technique: AP portable chest REASON FOR EXAM: CP INDICATION: Shortness of breath and chest pain FINDINGS: Heart size is normal. There are no infiltrates or effusions. Degenerative changes in the t horacic spine. IMPRESSION: 1. No acute cardiopulmonary pathology.
[2024-03-22 17:12] LABS: Chloride 108 mmol/L (98-107); Potassium 3.7 mmol/L (3.5-5.1); Sodium 141 mmol/L (136-145)
[2024-03-22 17:13] LABS: Anion Gap 6 (5-15); Calcium 9.4 mg/dL (8.7-10.4); Carbon Dioxide 27 mmol/L (20-31)
[2024-03-22 17:18] LABS: BUN/Creatinine Ratio 12.4 (10.0-20.0); Blood Urea Nitrogen 11 mg/dL (9-23); Glucose 94 mg/dL (74-106)
[2024-03-22] MEDS: ASPirin 81 mg TAB PO ONE (18:34)
[2024-03-22 18:44] VITALS: BP 108/65; PULSE 78; RESP 16; TEMP 98.3; O2SAT 97
--- NOTE | 2024-03-23 08:01 | ECG ---
[facility] Test Date: 2024-03-22 Test Time: 17:39:38 Pat Name: TRICE DOS SANTOS Department: ER Room: Gender: F Customer Contact Sales Associate: MARKO : 1990 Requested By: MARIFER CANDELARIO Order Number: [id number] Reading MD: Measurements Intervals [place] Rate: 73 P: 56 AR: 138 QRS: -3 QRSD: 91 T: -89 QT: 347 QTc: 383 Interpretive Statements Sinus rhythm Nonspecific T abnormalities, diffuse leads Please click the below link to view image of tracing.
== END 2024-03-22 18:50 | disposition home or self-care (01) ==
LOC: EDBD 16:15 → ER 16:15
DX: R07.89 Other chest pain (principal); I10 Essential (primary) hypertension; F41.9 Anxiety disorder, unspecified; Z79.899 Other long term (current) drug therapy
CPT/HCPCS: 36415; 71045; 80048; 85025; 85379; 93005